=== PATIENT | male | born 1950 | race Hispanic/Latino ===

== ENCOUNTER → 2019-03-16 | Outpatient (CLI) | payer MEDICARE ==
--- NOTE | 2019-03-16 16:40 | RAD ---
EXAM DESCRIPTION: Shoulder,Left 2 or More Views CLINICAL HISTORY: 68 years Male, PAIN IN LEFT SHOULDER COMPARISON: None. Findings: Location: Left shoulder No acute fracture or dislocation. Moderate acromioclavicular osteoarthritis. Soft tissues are unremarkable. Subacromial space is narrowed. Visualized chest is clear. Moderate glenohumeral osteoarthritis. IMPRESSION: Chronic degenerative changes in the left shoulder. No evidence of acute process. Electronically signed by: John Brown MD 03/16/2019 4:38 PM CDT
== END ==
LOC: RAD 08:40
PROVIDERS: ATTEND Orthopaedic Surgery
DX: M19.012 Primary osteoarthritis, left shoulder (principal)

== ENCOUNTER → 2019-04-20 | Outpatient (CLI) | payer MEDICARE ==
--- NOTE | 2019-04-21 08:41 | RAD ---
EXAM DESCRIPTION: Pelvis CLINICAL HISTORY: 68 years Male, PAIN COMPARISON: None. TECHNIQUE: AP radiograph of the pelvis was performed. FINDINGS: The pelvic ring appears grossly intact on this single AP radiograph. No acute fracture or dislocation. Bilateral sacroiliac joints appear normal. Mild degenerative changes identified in the bilateral joints. The visualized lumbo-sacral spine demonstrates mild degenerative changes. IMPRESSION: Single AP radiograph of the pelvis demonstrates grossly intact pelvic ring. Mild bilateral hip osteoarthritis. Electronically signed by: Randee Silverman MD 04/21/2019 8:40 AM CDT
--- NOTE | 2019-04-21 08:43 | RAD ---
EXAM DESCRIPTION: Knee,Left Complete CLINICAL HISTORY: 68 years Male, KNEE PAIN TECHNIQUE: 3 views of the left knee were performed. COMPARISON: None available. FINDINGS: The visualized bones appear well mineralized. No acute fracture or dislocation. Tricompartmental joint space narrowing and tiny suprapatellar joint effusion. The soft tissues appear grossly unremarkable. IMPRESSION: Tricompartmental joint space narrowing and tiny suprapatellar joint effusion. Electronically signed by: Randee Silverman MD 04/21/2019 8:41 AM CDT
== END ==
LOC: LAB.O 15:18
PROVIDERS: ATTEND Nurse Practitioner Family
DX: Z01.810 Encounter for preprocedural cardiovascular examination (principal); Z01.812 Encounter for preprocedural laboratory examination; M16.0 Bilateral primary osteoarthritis of hip; M25.562 Pain in left knee; M25.862 Other specified joint disorders, left knee; M25.462 Effusion, left knee

== ENCOUNTER → 2019-05-01 | Outpatient (CLI) | payer MEDICARE ==
--- NOTE | 2019-05-01 09:48 | MRI ---
MRI left shoulder without contrast INDICATION: Rotator cuff tear shoulder pain chronic TECHNIQUE: Noncontrast MR imaging left shoulder standard protocol FINDINGS: Severe thinning subscapularis affectively full-thickness tear. Long head bicep is very indistinct high-grade partial to complete rupture. Advanced cuff arthropathy with superior migration of the humerus with obliterated subacromial space. Chronic full-thickness retracted tear supraspinatus and infraspinatus. Background moderate glenohumeral osteoarthrosis. Moderate hypertrophic AC joint osteoarthrosis. Prominent joint and bursal fluid and synovitis/debris. Generalized grade 4 muscle atrophy throughout the rotator cuff musculature. IMPRESSION: Chronic cuff arthropathy with full-thickness rotator cuff tears and grade 4 diffuse muscle atrophy Background moderate glenohumeral and AC joint arthrosis Ill-defined or absent long head bicep indicating high-grade partial to full-thickness tear Electronically signed by: Fermin Varghese MD 05/01/2019 9:47 AM [employer]
== END ==
LOC: LAB.O 08:12
PROVIDERS: ATTEND Orthopaedic Surgery
DX: M75.102 Unspecified rotator cuff tear or rupture of left shoulder, not specified as traumatic (principal); S46.212A Strain of muscle, fascia and tendon of other parts of biceps, left arm, initial encounter; M62.512 Muscle wasting and atrophy, not elsewhere classified, left shoulder; M19.012 Primary osteoarthritis, left shoulder

== ENCOUNTER → 2019-06-11 | Outpatient (CLI) | payer MEDICARE ==
--- NOTE | 2019-06-11 13:03 | CT ---
Study: CT of the Left Shoulder. Indication: LOCALIZED PRIMARY OSTEOARTHRITIS OF SHOULDER REGION Technique: Axial CT of the left shoulder was performed without contrast. Coronal and sagittal reformats performed. This exam was performed according to our departmental dose-optimization program, which includes automated exposure control, adjustment of the mA and/or kV according to patient size and/or use of iterative reconstruction technique. Comparison: None. Findings: Severe hypertrophic AC joint osteoarthritis. Type I acromion with remodeling of its undersurface. Superior migration humeral head abutting the acromion. Full-thickness, fullwidth supraspinatus, infraspinatus, and subscapularis tendon tearing suspected with moderate atrophy and grade 3 fatty infiltration rotator cuff musculature. Significant cortical remodeling throughout the humeral head and glenoid indicating overlying grade 4 chondrosis. Mild flattening of the humeral head. Small to moderate osteophytes. Moderate size joint effusion. No acute fracture. Impression: Severe glenohumeral joint osteoarthritis. Severe hypertrophic AC joint osteoarthritis. Chronic massive rotator cuff tendon tearing as above. Electronically signed by: Familia Pierre MD 06/11/2019 1:02 PM [facility]
== END ==
LOC: CT 08:08
PROVIDERS: ATTEND Orthopaedic Surgery
DX: M19.012 Primary osteoarthritis, left shoulder (principal); M75.122 Complete rotator cuff tear or rupture of left shoulder, not specified as traumatic

== ENCOUNTER → 2019-06-22 | Outpatient (CLI) | payer MEDICARE ==
--- NOTE | 2019-06-22 08:25 | RAD ---
EXAM DESCRIPTION: Chest x-ray,2 Views CLINICAL HISTORY: PRE OP EVALUATION COMPARISON: None TECHNIQUE: PA/lateral FINDINGS: There is no acute appearing cardiac or pulmonary abnormality. Heart size is normal with normal pulmonary vascularity. No pleural effusion or pneumothorax. Lungs are clear with no consolidating infiltrate. Sclerotic left humeral head is present. Correlate with previous studies of the left shoulder. Lateral view shows intact sternum and T-spine. IMPRESSION: No acute process is identified in the chest. Electronically signed by: Ten Ford MD 06/22/2019 8:24 AM [facility]
== END ==
LOC: LAB.O 07:44
PROVIDERS: ATTEND Orthopaedic Surgery
DX: Z01.818 Encounter for other preprocedural examination (principal)

== ENCOUNTER 2019-07-21 05:23 | Inpatient (IN) | payer MEDICARE, OTHER ==
[2019-07-21] MEDS ORDERED: SODIUM CHL 0.9% 100ML MINI-BAG 100 ML IVPB ONE (05:36)
[2019-07-21] MEDS ORDERED: ceFAZolin SODIUM 1 GM VIAL ONE ×2 (05:36→06:25)
[2019-07-21] MEDS ORDERED: VANCOMYCIN HCL INJ 1,000 MG VIAL IVPB ONE ×5 (05:36→19:06)
[2019-07-21] MEDS ORDERED: TRANEXAMIC ACID 1,000 MG/10 ML VIAL ONE ×2 (05:36→05:43)
[2019-07-21] MEDS ORDERED: LACTATED RINGERS 0 ML ONE (05:36)
[2019-07-21] MEDS ORDERED: SODIUM CHLORIDE 0.9% 250ML 250 ML ONE ×3 (05:40→19:05)
[2019-07-21] MEDS ORDERED: SODIUM CHLORIDE 0.9% 100ML 100 ML IVPB ONE (05:40)
[2019-07-21] MEDS ORDERED: BUPIVACAINE LIPOSOME 13.3 MG/ML VIAL INJ ONE ×4 (06:25→06:43)
[2019-07-21] MEDS ORDERED: BUPIVACAINE 0.5% 30 ML VIAL INJ ONE ×2 (06:25→06:43)
[2019-07-21] MEDS ORDERED: CLINDAMYCIN IV 900MG 50 ML IVPB ONE (06:25)
[2019-07-21] MEDS ORDERED: DEXMEDETOMIDINE HCL 200 MCG/2 ML INJ IV ONE (06:35)
[2019-07-21] MEDS ORDERED: fentaNYL CITRATE INJ 50 MCG/ML AMP ONE (06:36)
[2019-07-21] MEDS ORDERED: MIDAZOLAM INJ 5 MG/5 ML VIAL ONE (06:36)
[2019-07-21] MEDS ORDERED: KETAMINE HCL 100 MG/ML VIAL ONE (06:36)
[2019-07-21] MEDS ORDERED: ROCURONIUM BROMIDE 10 MG/ML VIAL ONE ×2 (06:36→08:56)
[2019-07-21] MEDS ORDERED: CLINDAMYCIN IV 900 MG/50 ML BAG IVPB ONE (06:43)
[2019-07-21] MEDS ORDERED: ceFAZolin SODIUM 1 GM VIAL IRRIG ONE (06:43)
[2019-07-21] MEDS ORDERED: ACETAMINOPHEN IV 1000MG 100 ML ONE (08:18)
[2019-07-21] MEDS ORDERED: SUGAMMADEX SODIUM 200 MG/2 ML VIAL IV ONE (08:56)
[2019-07-21] MEDS ORDERED: ZOLPIDEM TARTRATE 5 MG TAB PO PRN (09:18)
[2019-07-21] MEDS ORDERED: ACETAMINOPHEN 500 MG TAB PO PRN (09:18)
[2019-07-21] MEDS ORDERED: MORPHINE SULFATE INJ 10 MG/ML VIAL IM PRN (09:18)
[2019-07-21] MEDS ORDERED: PROMETHAZINE HCL INJ 12.5 MG in SODIUM CHLORIDE 0.9% 50ML 50 ML IVPB PRN (09:18)
[2019-07-21] MEDS ORDERED: TRANEXAMIC ACID INJ 1,000 MG in SODIUM CHLORIDE 0.9% 100ML 100 ML IVPB ONE (09:18)
[2019-07-21] MEDS ORDERED: BISACODYL SUPPOSITORY 10 MG PR PRN (09:18)
[2019-07-21] MEDS ORDERED: ACETAMINOPHEN 325 MG TAB PO PRN (09:18)
[2019-07-21] MEDS ORDERED: ALUMINUM & MAGNESIUM HYDROXIDE 30 ML UD PO PRN (09:18)
[2019-07-21] MEDS ORDERED: SODIUM CHLORIDE 0.9% (FLUSH) 10 ML SYG IV PRN (09:18)
[2019-07-21] MEDS ORDERED: PROMETHAZINE HCL INJ 25 MG in SODIUM CHLORIDE 0.9% 50ML 50 ML IVPB PRN (09:18)
[2019-07-21] MEDS ORDERED: MAGNESIUM HYDROXIDE 30 ML UD PO PRN (09:18)
[2019-07-21] MEDS ORDERED: TEMAZEPAM 15 MG CAP PO PRN (09:18)
[2019-07-21] MEDS ORDERED: BENZOCAINE-MENTH LOZ (CEPACOL) 1 EA LOZ MT PRN (09:18)
[2019-07-21] MEDS ORDERED: ONDANSETRON INJ 4 MG/2 ML VIAL IV PRN (09:18)
[2019-07-21] MEDS ORDERED: NALOXONE HCL INJ 0.4 MG/ML VIAL IV PRN (09:18)
[2019-07-21] MEDS ORDERED: HYDROcodone 5MG/APAP 325MG 1 EA TAB PO PRN (09:24)
[2019-07-21] MEDS ORDERED: DEX 5% W/NACL 0.45% 1000ML 1,000 ML IVS PRN (09:24)
[2019-07-21] MEDS ORDERED: MORPHINE PCA 1 MG/ML 100 ML BAG IVPB SCH (09:30)
[2019-07-21] MEDS ORDERED: IV SET AND CAP CHANGE INJ INJ SCH (09:30)
[2019-07-21] MEDS ORDERED: LACTATED RINGERS 1,000 ML ONE (10:02)
[2019-07-21] MEDS: CLINDAMYCIN INJ (VIAL) 300 MG in SODIUM CHLORIDE 0.9% 50ML 50 ML IVPB SCH ×2 (11:18→17:33)
--- NOTE | 2019-07-21 11:26 | RAD ---
EXAM DESCRIPTION: Shoulder,Left 1 View CLINICAL HISTORY: S/P Total Shoulder Arthroplasty COMPARISON: None. TECHNIQUE: AP left FINDINGS: The exam demonstrates placement of a reverse left shoulder arthroplasty. Positioning is near-anatomic. Postoperative air is observed in the joint. IMPRESSION: New left shoulder reverse arthroplasty Electronically signed by: Diogo Henderson MD 07/21/2019 11:24 AM [facility]
[2019-07-21] MEDS ORDERED: GLUCAGON INJ 1 MG VIAL SUBCU PRN (11:29)
[2019-07-21] MEDS ORDERED: HYDROcodone 10MG/APAP 325MG 1 EA TAB PO PRN (11:29)
[2019-07-21] MEDS ORDERED: DEXTROSE 10% 500ML IVPB PRN (11:29)
[2019-07-21] MEDS ORDERED: DEXAMETHASONE INJ 10 MG/ML VIAL IV ONE (12:00)
[2019-07-21] MEDS ORDERED: ePHEDrine SULF 50 MG/ML IV ONE (12:00)
[2019-07-21] MEDS ORDERED: PROPOFOL 200 MG/20 ML VIAL IV ONE (12:00)
[2019-07-21] MEDS ORDERED: raNITIdine HCL INJ 25 MG/ML VIAL IV ONE (12:00)
[2019-07-21] MEDS ORDERED: KETOROLAC TROMETHAMINE INJ 30 MG/ML VIAL IV ONE (12:00)
[2019-07-21] MEDS ORDERED: LIDOCAINE 1% 10 ML VIAL INJ ONE (12:00)
[2019-07-21] MEDS: INSULIN LISPRO 100 UNITS/ML PEN SUBCU SCH ×3 (12:06→20:46)
[2019-07-21] MEDS: HYDROcodone 10MG/APAP 325MG 1 EA TAB PO PRN ×3 (12:09→21:33)
[2019-07-21] MEDS: CYCLOBENZAPRINE HCL 10 MG TAB PO PRN ×2 (12:09→20:37)
[2019-07-21] MEDS: MORPHINE SULFATE INJ 10 MG/ML VIAL IV PRN ×2 (14:10→15:06)
[2019-07-21] MEDS ORDERED: ceFAZolin SODIUM 1 GM in SODIUM CHL 0.9% 50ML MIN-BAG+ 50 ML IVPB SCH (16:00)
[2019-07-21] MEDS ORDERED: CLINDAMYCIN PHOSPHATE 150 MG/ML VIAL ONE ×3 (17:27→19:05)
[2019-07-21] MEDS ORDERED: SODIUM CHLORIDE 0.9% 50ML 50 ML ONE ×2 (17:28→19:06)
[2019-07-21] MEDS: traMADol HCL 50 MG TAB PO PRN ×2 (17:33→22:12)
[2019-07-21] MEDS: VANCOMYCIN HCL INJ 1,000 MG in SODIUM CHLORIDE 0.9% 250ML 250 ML IVPB SCH (18:12)
[2019-07-21] MEDS ORDERED: ENOXAPARIN SODIUM 30 MG/0.3 ML SYG SUBCU ONE (19:05)
[2019-07-21] MEDS: DOCUSATE CALCIUM 240 MG CAP PO SCH (20:37)
[2019-07-21] MEDS ORDERED: HYDROcodone 10MG/APAP 325MG 1 EA TAB PO ONE (20:44)
[2019-07-21] MEDS: ENOXAPARIN SODIUM 30 MG/0.3 ML SYG SUBCU SCH (22:57)
[2019-07-22] MEDS: CLINDAMYCIN INJ (VIAL) 300 MG in SODIUM CHLORIDE 0.9% 50ML 50 ML IVPB SCH ×3 (01:12→18:00)
[2019-07-22] MEDS: MORPHINE SULFATE INJ 10 MG/ML VIAL IV PRN ×4 (01:21→22:39)
[2019-07-22] MEDS: HYDROcodone 10MG/APAP 325MG 1 EA TAB PO PRN ×6 (02:02→23:42)
[2019-07-22] MEDS: VANCOMYCIN HCL INJ 1,000 MG in SODIUM CHLORIDE 0.9% 250ML 250 ML IVPB SCH (06:00)
[2019-07-22] MEDS: CYCLOBENZAPRINE HCL 10 MG TAB PO PRN ×2 (06:03→15:38)
[2019-07-22] MEDS: INSULIN LISPRO 100 UNITS/ML PEN SUBCU SCH ×4 (07:15→21:19)
[2019-07-22] MEDS ORDERED: CLINDAMYCIN PHOSPHATE 150 MG/ML VIAL ONE ×2 (09:21→18:30)
[2019-07-22] MEDS ORDERED: SODIUM CHLORIDE 0.9% 50ML 50 ML ONE ×2 (09:22→18:30)
[2019-07-22] MEDS: MAGNESIUM OXIDE 400 MG TAB PO SCH (09:32)
[2019-07-22] MEDS: ENOXAPARIN SODIUM 30 MG/0.3 ML SYG SUBCU SCH ×2 (11:42→22:39)
--- NOTE | 2019-07-22 13:18 | CONS ---
SUPERVISING PHYSICIAN: Esvin Haynes MD DATE OF CONSULTATION: 07/21/19 HISTORY OF PRESENT ILLNESS: This is a 68-year-old male patient who has had a longstanding history of left shoulder pain. He has a history of osteoarthritis. After trying conservative measures and failing to gain any relief, he asked that Dr. Ortega, orthopedic surgeon, perform operative intervention for left reverse total shoulder replacement. He was admitted on the morning of his surgery. There were no intraoperative complications. In the Recovery Room, he did have somewhat elevated glucose as well as his pain was somewhat difficult to get under control, but he has had multiple orthopedic type surgeries in the past as well as some chronic pain issues. His pain was gotten under control and he was admitted to the Medical/Surgical Floor in stable condition. PAST MEDICAL HISTORY: 1. Back pain. 2. Bilateral foot pain. 3. Osteoarthritis. 4. Chronic pain syndrome due to multiple surgical interventions. PAST SURGICAL HISTORY: 1. Four surgeries on toes on his right foot. 2. Three surgeries on toe on his left foot. 3. Back surgery. 4. Three left hand surgeries. OUTPATIENT MEDICATIONS: 1. Hydrocodone. ALLERGIES: NO KNOWN DRUG ALLERGIES. SOCIAL HISTORY: He lives in [place]. He quit smoking 38 years ago and has no history of ETOH or illicit drug use. REVIEW OF SYSTEMS: Negative except as per history of present illness. PHYSICAL EXAMINATION: VITAL SIGNS: Temperature 97.9. Heart rate 80. Blood pressure 147/80. Respiratory rate 14. O2 saturation 91% on room air. GENERAL: This is a 68-year-old male who is sitting up in his hospital bed. He is in no acute distress. HEENT: Normocephalic, atraumatic. Pupils are equal and reactive. Oropharynx is clear. NECK: Supple without mass. RESPIRATORY: Essentially clear to auscultation bilaterally. CHEST: There is equal rise and fall of the chest with inspiration and expiration. CARDIOVASCULAR: Regular rate and rhythm. GASTROINTESTINAL: Abdomen is soft, nondistended, nontender. Bowel sounds are positive. EXTREMITIES: No cyanosis, clubbing or edema. He does have a sling to his left arm. He also has a dressing to the left shoulder that is dry and intact. Bilateral radial pulses are palpable at +2. Bilateral pedal pulses are palpable at +2. SKIN: Warm and dry. NEUROLOGIC: Awake, alert and oriented times three. Cranial nerves II-XII are grossly intact as tested. LABORATORY: Preoperative UDS was positive for urine opiates, otherwise negative. Blood sugar in the OR was 117, 125 and 133. X-rays are as per the EMR. IMPRESSION: 1. Left reverse total shoulder replacement, postoperative day #0. 2. Osteoarthritis. 3. Chronic pain syndrome. PLAN: We will continue present supportive care. Orthopedic issues will be per Dr. Juan Ortega, orthopedic surgeon. He will begin his physical therapy for strengthening and conditioning tomorrow per [facility] physical therapy team. I have continued his hydrocodone at his home dosage. I have ordered a hemoglobin A1c for in the morning. We will continue to monitor the patient closely and follow as needed. [facility][id number] [facility]
[2019-07-22] MEDS: traMADol HCL 50 MG TAB PO PRN (15:43)
[2019-07-22] MEDS ORDERED: HYDROcodone 10MG/APAP 325MG 1 EA TAB PO ONE (17:50)
--- NOTE | 2019-07-22 18:30 | PN ---
DATE: 07/22/19 SUPERVISING PHYSICIAN: Esvin Haynes MD SUBJECTIVE: The patient is sitting up in bed eating. Brother is at his bedside. He has no complaints of shortness of breath, nausea or vomiting or chest pain. He does complain of pain rating it almost every time at about 7. We discussed that he would not be pain-free and we would attempt to control his pain as much as possible. He has received an extra dose of his hydrocodone overnight. OBJECTIVE: VITAL SIGNS: Temperature 97.8, heart rate 64, blood pressure 142/74, respiratory rate 18, oxygen saturation 91% on room air. RESPIRATORY: Essentially clear to auscultation bilaterally. CARDIAC: Regular rate and rhythm. ABDOMEN: Soft, nondistended, non-tender. Bowel sounds are positive. EXTREMITIES: He has sling in place to his left arm. He has a dressing that is dry and intact. His bilateral radial pulses are palpable at 0.2. NEUROLOGICAL: He is awake, alert, and oriented x3. LABORATORY: Hemoglobin 11.4, hematocrit 34.1. Hemoglobin A1C is 5.4. All other labs and films have been reviewed via the EMR. ASSESSMENT: 1. Left reverse total shoulder replacement, postoperative day #1. 2. Osteoarthritis. 3. Chronic pain syndrome. PLAN: We will continue present supportive care. Instructions will be per Dr. Juan Ortega, orthopedic surgeon. He will continue with physical therapy for strengthening and conditioning. He is also to have [facility] at discharge for his physical therapy. I have instructed the nurses to call me when the patient's pain is poorly controlled and we would discuss options at that time. Otherwise, will plan for discharge tomorrow. Will continue to monitor him closely and follow as needed. #[id number] [facility]D
[2019-07-22] MEDS: SODIUM CHLORIDE 0.9% (FLUSH) 10 ML SYG IV SCH (21:19)
[2019-07-22] MEDS: DOCUSATE CALCIUM 240 MG CAP PO SCH (21:20)
[2019-07-23] MEDS ORDERED: SODIUM CHLORIDE 0.9% 50ML 50 ML ONE ×2 (01:12→07:15)
[2019-07-23] MEDS ORDERED: CLINDAMYCIN PHOSPHATE 150 MG/ML VIAL ONE ×2 (01:12→07:14)
[2019-07-23] MEDS: CLINDAMYCIN INJ (VIAL) 300 MG in SODIUM CHLORIDE 0.9% 50ML 50 ML IVPB SCH ×2 (01:20→09:23)
[2019-07-23] MEDS: HYDROcodone 10MG/APAP 325MG 1 EA TAB PO PRN ×3 (03:43→12:58)
[2019-07-23] MEDS: CYCLOBENZAPRINE HCL 10 MG TAB PO PRN (05:45)
[2019-07-23] MEDS: traMADol HCL 50 MG TAB PO PRN (05:45)
[2019-07-23] MEDS: INSULIN LISPRO 100 UNITS/ML PEN SUBCU SCH ×2 (07:13→12:02)
--- NOTE | 2019-07-23 09:02 | OP ---
DATE OF PROCEDURE: 07/21/19 PREOPERATIVE DIAGNOSIS: 1. Osteoarthritis of the left shoulder. 2. Rotator cuff tear. POSTOPERATIVE DIAGNOSIS: 1. Osteoarthritis of the left shoulder. 2. Rotator cuff tear. PROCEDURE: 1. Reverse shoulder arthroplasty. SURGEON: Juan Ortega MD. ELECTRIC ORGAN INSPECTOR AND REPAIRER: Chaparro Cuellar CST, SA-C. ANESTHESIA: General anesthesia. COMPLICATIONS: None. FINDINGS: 1. Severe osteoarthritis. 2. Massive rotator cuff tear. INDICATION: Mr. Leal has a long history of shoulder pain. He has had dysfunction that has been limiting his daily activity. Because of his issues, he has requested operative intervention. After discussing the risks, benefits and alternatives to operative therapy, the patient gave informed consent for shoulder arthroplasty. PROCEDURE: The patient was brought to the Operating Room and placed in the supine position. General anesthesia was induced. The patient was transitioned into the beach chair position. Following that, the arm was sterilely prepped and draped. A standard deltopectoral approach was used and the proximal humerus was identified. The proximal humeral cut was made and it was sequentially reamed to a size 15. The trial broach was left in place and the glenoid was exposed. Following exposure of the glenoid, a central guidewire was placed. After that, it was sequentially reamed with a 24 mm reamer followed by a 28 mm reamer. A baseplate was seated after I achieved a bleeding bony bed on the glenoid. Four peripheral screws were placed. Following that, the glenosphere was placed. A trial cup was then placed and the patient's shoulder was reduced. Following reduction, it was taken through a range of motion. It was found to be stable and had no impingement or impending dislocation. The shoulder was then dislocated and the trial stem and cup were removed. Following that, the wound was very thoroughly irrigated. The final construct was placed and the shoulder was again reduced. It was again trialed and found to be without impingement. The wound was again very thoroughly irrigated and the deltopectoral interval was reapproximated. The skin was closed with a combination of running and interrupted subcuticular stitches. Sterile dressings were placed. The patient was placed in a sling, awoken from anesthesia and taken to Recovery. POSTOPERATIVE PLAN: The patient will be admitted and will begin gentle passive range of motion on the shoulder on postoperative day 1. COMPONENTS: Shae ReUnion Shoulder, size 15 stem, size 32 glenosphere and size 28 baseplate. #[id number] [facility]
--- NOTE | 2019-07-23 09:15 | PN ---
DATE: 07/22/19 SUBJECTIVE: Luca is doing well. He has well controlled pain. OBJECTIVE: Afebrile. Vital signs stable. Dressing is clean, dry and intact. ASSESSMENT: Status post total shoulder arthroplasty. PLAN: The plan at this point is for beginning physical therapy today. #[id number] [facility]TDD
--- NOTE | 2019-07-23 09:17 | PN ---
DATE: 07/23/19 SUBJECTIVE: Luca is doing well. He is up walking. OBJECTIVE: Afebrile. Vital signs stable. The wound is clean. There are no signs or symptoms of infection. ASSESSMENT: Status post reverse shoulder arthroplasty. PLAN: The plan at this point is for him to be discharged with outpatient physical therapy. We will see him back again in about 2 weeks. #[id number] [facility]TDD
[2019-07-23] MEDS: MAGNESIUM OXIDE 400 MG TAB PO SCH (09:23)
[2019-07-23] MEDS: SODIUM CHLORIDE 0.9% (FLUSH) 10 ML SYG IV SCH (09:24)
[2019-07-23 11:21] VITALS: BP 152/80; TEMP 98; O2SAT 95
[2019-07-23] MEDS: ENOXAPARIN SODIUM 30 MG/0.3 ML SYG SUBCU SCH (11:32)
--- NOTE | 2019-07-28 08:45 | DS ---
SUPERVISING PHYSICIAN: Esvin Haynes MD DISCHARGE DIAGNOSIS: 1. Left reverse total shoulder replacement, postoperative day #2. 2. Osteoarthritis. 3. Chronic pain syndrome. HISTORY OF PRESENT ILLNESS: This is a 68-year-old male patient who was admitted on the day of his operative procedure. He had a left reverse total shoulder replacement. He was admitted to the hospital in stable condition. He has had a longstanding history of left shoulder pain as well as osteoarthritis. He tried conservative measures that failed to give any relief, and he asked that Dr. Ortega, orthopedic surgeon, perform operative intervention. He was admitted to have surgery and there were no intraoperative complications. He was admitted to the Medical/Surgical Floor in stable condition. HOSPITAL COURSE: The patient was admitted to the Medical/Surgical Floor in stable condition. His only issue after admission to the Floor was pain. He always rated his pain as a 7 in spite of being asleep or resting quietly. He did admit that he had taken pain medications in the last few years because he has had multiple orthopedic surgeries. He received his physical therapy for strengthening and conditioning without any issues. Today, he will be discharged home in stable condition. LABORATORY: Hemoglobin 11.4, hematocrit 34.1. Blood sugars ran between 98 and 130. He had a positive urine drug screen for opiates, otherwise negative. RADIOLOGY: Radiology reports are per the EMR. DISCHARGE PLAN: The patient will be discharged home in stable condition. He is to have [facility] for physical therapy. He is to resume his previous diet and his activity will be per physical therapy. He is to followup with Dr. Ortega on 07/27/19 at 10 AM. In addition to his routine medications, he is to have cyclobenzaprine as well as Raymond. He is to return to the hospital or call Dr. Ortega for any problems or complications. DISCHARGE MEDICATIONS: 1. Raymond. 2. Multivitamins. 3. Cyclobenzaprine. #[id number] [facility]
== END 2019-07-23 13:10 | disposition home health service (06) | DRG 483 ==
LOC: AMB 05:23 → MS 10:57
PROVIDERS: ADMIT Orthopaedic Surgery; ATTEND Nurse Practitioner Acute Care
PROC: 3E0T3BZ Introduction of Anesthetic Agent into Peripheral Nerves and Plexi, Percutaneous Approach (ICD-10-PCS; 2019-07-21)
PROC: 0RRK00Z Replacement of Left Shoulder Joint with Reverse Ball and Socket Synthetic Substitute, Open Approach (ICD-10-PCS; principal; 2019-07-21 07:00)
DX: M19.012 Primary osteoarthritis, left shoulder (principal); M75.102 Unspecified rotator cuff tear or rupture of left shoulder, not specified as traumatic; G89.4 Chronic pain syndrome; Z98.890 Other specified postprocedural states; Z79.891 Long term (current) use of opiate analgesic; Z87.891 Personal history of nicotine dependence

== ENCOUNTER 2019-07-25 14:46 | Observation (INO) | payer MEDICARE, MEDICAID ==
[2019-07-25] MEDS ORDERED: HYDROmorphone HCL INJ 2 MG/ML VIAL IV ONE (15:36)
--- NOTE | 2019-07-25 15:42 | ED.PDOC ---
History of Present Illness - General Chief Complaint: Post Op Problems Stated Complaint: Shoulder discomfort Time Seen by Provider: 07/25/19 15:36 Source: patient - History of Present Illness Initial Comments: 68 yo male POD #3 s/p L total shoulder replacement who is transferred here from [place] ED via ground EMS for cc of left shoulder pain. Reports worsening pain, redness, swelling, warmth to the left shoulder since he had L total shoulder replacement (indicated for osteoarthritis). Pain became unbearable and uncontrollable with home pain meds so he presented to ED this morning. Also reports new onset fever this morning with Tmax 100.3 F. At work-up showed WBC 10,[address] L shoulder done which revealed a couple small areas of fluid collections which are thought to be normal postop findings and a small hematoma but infection could not be excluded. Pt had LUE doppler venous US which revealed no evidence of DVT. He was given Vanc & Zosyn and transferred here. In all he has had morphine 8 mg IV and Fentanyl 250 mcg IV prior to arrival here. Reports pain well-controlled but starting to return again. Currently reports constant, throbbing 7/10 pain throughout the left shoulder, worse anteriorly and posteriorly, worsens with moderate ROM of shoulder and palpation. Reports redness/warmth/swelling which extends to the upper arm and forearm of the LUE, much improved actually since this morning. Denies any weakness/numbness. Also reports some new bruising to central chest wall since this morning but denies any acute injury there. No other acute sx's reported. Allergies/Adverse Reactions: Allergies NO KNOWN ALLERGY Allergy (Verified 07/22/19 23:52) Home Medications: Ambulatory Orders HYDROcodone 10MG/APAP 325MG [[place] 10/325] 1 ea PO .Q4H PRN 07/13/19 Misc Natural Products [Prostate Health] 1 cap PO .QOD 07/13/19 Multiple Vitamin [Multi Vitamin] 1 tab PO DAILY 07/13/19 Cyclobenzaprine HCl [Flexeril] 10 mg PO Q8H PRN #30 tab 07/23/19 HYDROcodone 10MG/APAP 325MG [[place] 10/325] 1 ea PO Q4H PRN tab 07/23/19 Review of Systems - Review of Systems Review of Systems: 07/25/19 15:42 as per HPI All other Systems: Reviewed and Negative Past Medical History (General) - Patient Medical History Hx Seizures: No Hx Stroke: No Hx Dementia: No Hx Asthma: No Hx of COPD: No Hx Cardiac Disorders: No Hx Congestive Heart Failure: No Hx Pacemaker: No Hx Hypertension: No Hx Thyroid Disease: No Hx Diabetes: No Hx Gastroesophageal Reflux: No Hx Renal Disease: No Hx Cancer: No Hx of HIV: No Hx Hepatitis C: Yes Hx MRSA: No Surgical History: tonsillectomy - Vaccination History Hx Tetanus, Diphtheria Vaccination: Yes Hx Influenza Vaccination: Yes Hx Pneumococcal Vaccination: Yes - Social History Hx Tobacco Use: No Hx Chewing Tobacco Use: No Hx Alcohol Use: No Hx Substance Use: No Hx Substance Use Treatment: No Hx Depression: No Feels Threatened In Home Enviroment: No Feels Threatened In a Relationship: No Hx Physical Abuse: No Hx Emotional Abuse: No Hx Suspected Abuse: No - Female History Patient is a Female of Child Bearing Age (10 -59 yrs old): No - Triage Comment ED Triage Comment: Agree with Rosa Lawrence EMT-P triage Family Medical History - Family History Mother Family History: No Known Physical Exam - Physical Exam General Appearance: Alert, No apparent distress Eye Exam: bilateral normal Ears, Nose, Throat: hearing grossly normal, normal ENT inspection, normal pharynx Neck: non-tender, full range of motion, supple, normal inspection Respiratory: lungs clear, normal breath sounds, no respiratory distress, other - moderate bruising approx 5x5 cm to center of chest, moderately ttp Cardiovascular/Chest: normal peripheral pulses, regular rate, rhythm, no gallop, no murmur Peripheral Pulses: radial,right: 2+, radial,left: 2+ Gastrointestinal/Abdominal: non tender, soft, no organomegaly Back Exam: normal inspection, no CVA tenderness, no vertebral tenderness Extremity: other - Left upper arm with marked pitting edema, redness, warmth. The incision site is an approx 14 cm linear wound which appears clean/dry/intact. There is moderate ttp throughout the L shoulder especially anteriorly and posteriorly. No ttp or swelling of the elbow joint, elbow with full ROM. Strength and sensation intact throughout Neurologic: board attendant II-XII nml as tested, no motor/sensory deficits, alert, normal mood/affect, oriented x 3 Skin Exam: warm/dry, other - LUE redness as above Progress - Progress Progress: 07/25/19 15:45 Post-op pain LUE -suspect usual postoperative changes/inflammation from major joint replacement surgery. Consider also sepsis vs cellulitis vs joint space infection vs other but seems less likely to me. DVT has already been excluded from prior facility. -will consult with Dr. Ortega and likely plan for admit for further care to hospitalist service 07/25/19 16:25 -Dr. Ortega has spoken with the hospitalist David Moore and discussed plan of care for admission for postoperative pain control -Discussed with David Moore who accepts to his service. Tony Sweet MD Billing #[id number] Departure - Departure Clinical Impression: Acute postoperative pain Time of Disposition: 16:25 Disposition: Admit Patient Condition: Fair Departure Forms: ED Discharge - Pt. Copy, Patient Portal Self Enrollment Referrals: LUIS FAY IV, HOGSHEAD WEIGHER [Primary Care Provider] - 1-2 Weeks Home Medications: Ambulatory Orders HYDROcodone 10MG/APAP 325MG [[place] 10/325] 1 ea PO .Q4H PRN 07/13/19 Misc Natural Products [Prostate Health] 1 cap PO .QOD 07/13/19 Multiple Vitamin [Multi Vitamin] 1 tab PO DAILY 07/13/19 Cyclobenzaprine HCl [Flexeril] 10 mg PO Q8H PRN #30 tab 07/23/19 HYDROcodone 10MG/APAP 325MG [[place] 10/325] 1 ea PO Q4H PRN tab 07/23/19 Decision To Admit - Decistion To Admit Decision to Admit Reason: Admit from ER Decision to Admit Date: 07/25/19 Decision to Admit Time: 16:25
--- NOTE | 2019-07-25 16:44 | HP ---
SUPERVISING PHYSICIAN: Esvin Haynes MD CHIEF COMPLAINT: Left shoulder pain status post total arthroplasty on 07/21/19. HISTORY OF PRESENT ILLNESS: Mr. Leal is a 68-year-old male patient who is postoperative day #3 status post total left shoulder replacement. He was transferred from [facility] ED by ground EMS with a complaint of severe left shoulder pain. He endorses the pain has been worsening with some mild redness and swelling since discharge. He has not been getting any relief with his oral medications. In the Emergency Department he was noted to have a temperature of 100.3. Initial workup showed he had a white count of 10,000 without a left shift. A CT of the left shoulder was completed and showed just a few areas of small fluid collections which were thought to be normal postoperative findings as well as a small hematoma but infection was not able to be ruled out on CT. The patient also had a left upper extremity Doppler venous study which revealed no evidence of DVT. In the Emergency Department at [facility] he was given antibiotics to include vancomycin and Zosyn and transferred to the Emergency Department here for evaluation at Dr. Ortega's request. He was requiring a fairly large amount of pain medication that included morphine which he got up to 8 mg as well as Fentanyl 250 mcg and on arrival was still reporting his pain was controlled but throbbing and 7/10 throughout the left shoulder. The pain he endorses was worse anteriorly and posteriorly and worsened with range of motion of his shoulder on palpation. There was some reported redness and warmth and swelling that extended to the upper arm and forearm of the left upper extremity but this was not seen on admission to the Emergency Department today. He denied any weakness or other neurovascular compromise to the left extremity. Dr. Ortega was consulted by the physician at [facility] and after consultation it was requested the patient be transferred to the Emergency Room at [facility] for further evaluation. Dr. Ortega then called myself and requested the patient after evaluation, be admitted for more aggressive pain management as the pain was being poorly controlled with oral medications as an outpatient. On presentation to the Emergency Room at [facility], vital signs showed he was afebrile with a temperature of 99.3. He was actually hypertensive with a blood pressure of 330218, oxygen saturation 100% on room air. No additional laboratory studies were done prior to admission to the Emergency Room here. He had already been started on antibiotics. The patient was found to be stable with no obvious overt signs of infection in his shoulder but was certainly having poor control of pain management with oral pain management and is now going to be admitted for more aggressive pain management and close evaluation and consultation with Dr. Ortega. The patient was admitted to the hospital in stable condition. PAST MEDICAL HISTORY: 1. Chronic back pain. 2. Bilateral foot pain. 3. Osteoarthritis. 4. Chronic pain syndrome due to multiple surgical interventions. PAST SURGICAL HISTORY: 1. Left total shoulder surgery as noted, postoperative day #4 on 07/23/19. 2. Surgery to right foot and toes x4. . 2. Surgery to left foot and toe x3. . 3. Multiple back surgeries. 4. Three left hand surgeries. OUTPATIENT MEDICATIONS: 1. Hydrocodone. 2. Flexeril. ALLERGIES: NO KNOWN DRUG ALLERGIES. SOCIAL HISTORY: Patient lives in [place]. He has a history of smoking but quit 38 years previously, has no history of alcohol or illicit drug use. REVIEW OF SYSTEMS: CONSTITUTIONAL: Noted subjective fever as an outpatient of 102. Denied chills, rigors, diaphoresis. HEENT: Negative for headaches, sore throat, ear ache, nasal congestion, vision changes. CHEST: Denies coughing, wheezing shortness of breath, hemoptysis. CARDIOVASCULAR: Denies chest pain, palpitations, syncopal episodes. GASTROINTESTINAL: Denies nausea, vomiting, diarrhea, constipation or abdominal pains. GENITOURINARY: Denies polyuria, dysuria, hematuria. MUSCULOSKELETAL: As noted in history of present illness, status post postoperative day #4 for total left arthroplasty of left shoulder with uncontrolled pain as noted in history of present illness. . EXTREMITIES: Without any significant findings. NEUROLOGICAL: Negative for headaches, ataxia, seizures, paresthesias or other neurological deficits. HEMATOLOGIC: Denies easy bruising or unexplained bleeding.or transfusion reaction. PHYSICAL EXAMINATION: VITAL SIGNS: Temperature on admission 99.3, pulse 89, blood pressure 190/102, respirations 16, oxygen saturation 90% on room air. Admission weight 74.3 kg. GENERAL: The patient was alert and resting comfortably, appeared to be in no acute distress. HEENT: Tympanic membranes clear bilaterally. Oropharynx pink, moist without lesions. NECK: Supple, non-tender with full range of motion. CHEST: Lung sounds clear to auscultation bilaterally without rhonchi, rales, or wheezes with small area of bruising noted approximately 5 x 5 cm in the center of the chest which is non-tender to palpation. CARDIOVASCULAR: Regular rate and rhythm without appreciable murmurs, rubs, or gallops. GASTROINTESTINAL: Abdomen is soft, nontender. Bowel sounds are positive. BACK: Without any significant findings. No CVA tenderness, no vertebral tenderness. EXTREMITIES: Left upper extremity had some edema with some mild erythema, warm to the touch. No obvious signs of infection. Incision site measured [id number] cm and appeared to be clean and dry with no drainage and was intact, healing well without any complications. The shoulder was tender to palpation throughout, more so anteriorly and posteriorly. There is noted tenderness to palpation along the elbow with full range of motion to the elbow. Strength and sensation were noted to be intact throughout. He does have some pain on passive range of motion/ NEUROLOGIC: Cranial nerves II-XII are grossly intact, no notable motor or sensory deficits. He was alert and oriented x 3. SKIN: Warm, pink and dry with exception of the left upper extremity which was mildly erythemic as noted. LABORATORY: No additional laboratory was completed on admission. Initial white count 10,000 in the Emergency Department at [facility]. Awaiting those lab results for full review. RADIOLOGY: CT performed at [facility] as noted a couple of small areas of fluid collection which were thought to be normal postoperative findings and a small hematoma. He also had left upper extremity Doppler venous study which was without any findings for DVT. Awaiting those full reports for review. ASSESSMENT: 1. Postoperative day #3 status post left total shoulder replacement with uncontrollable postoperative pain, on oral medications. 2. Hypertension poorly controlled. 3. Chronic back pain. 4. Chronic bilateral foot pain. 5. Chronic osteoarthritis. 6. Chronic pain syndrome due to multiple surgical intervention likely contributing to poor control of #1. PLAN: After discussing the case with Dr. Ortega, we are going to put the patient in the hospital for better pain management and close evaluation. Will start him on the Dilaudid pain pump at Dr. Ortega's request as well as his postoperative care and comfort measures. Dr. Ortega also requests that we go ahead and start some empiric coverage with antibiotics to include clindamycin and vancomycin, although at this point there is no obvious infection but given that he is recent postoperative from a total arthroplasty and the patient had already been discharged home, will begin antibiotic coverage and closely monitor. Will plan to follow his labs as needed. I have ordered a physical therapy consultation as well as consultation with Dr. Ortega. I would anticipate his length of stay to be 2 to 3 days. At this point, we will further rule out any remote possibility of infection and again at this point, this appears to not be the issue at hand other than just poor control with the patient having an issue with chronic pain syndrome. Again, until we can transition him back to oral pain management, will continue with inpatient physical therapy, close evaluation. Until then, we will continue to monitor and treat as needed.. #[id number] [facility]
[2019-07-25] MEDS ORDERED: HYDROmorphone PCA 0.2 MG/ML 1 BAG BAG IVPB ONE (16:51)
[2019-07-25] MEDS ORDERED: MAGNESIUM HYDROXIDE 30 ML UD PO PRN (17:10)
[2019-07-25] MEDS ORDERED: CYCLOBENZAPRINE HCL 10 MG TAB PO PRN (17:10)
[2019-07-25] MEDS ORDERED: ACETAMINOPHEN 325 MG TAB PO PRN (17:10)
[2019-07-25] MEDS ORDERED: BENZOCAINE-MENTH LOZ (CEPACOL) 1 EA LOZ MT PRN (17:10)
[2019-07-25] MEDS ORDERED: BISACODYL SUPPOSITORY 10 MG PR PRN (17:10)
[2019-07-25] MEDS ORDERED: ALUMINUM & MAGNESIUM HYDROXIDE 30 ML UD PO PRN (17:10)
[2019-07-25] MEDS ORDERED: NALOXONE HCL INJ 0.4 MG/ML VIAL IV PRN (17:11)
[2019-07-25] MEDS ORDERED: SODIUM CHLORIDE 0.9% (FLUSH) 10 ML SYG IV PRN (17:13)
[2019-07-25] MEDS ORDERED: ONDANSETRON INJ 4 MG/2 ML VIAL IV PRN (17:13)
[2019-07-25] MEDS ORDERED: SODIUM CHLORIDE 0.9% 1000ML 1,000 ML ONE (17:15)
[2019-07-25] MEDS ORDERED: ACETAMINOPHEN IV 1000MG 1,000 MG in PREMIX BOTTLE 1 BOTTLE IVPB ONE (17:18)
[2019-07-25] MEDS ORDERED: ACETAMINOPHEN IV 1000MG 100 ML ONE (17:26)
[2019-07-25] MEDS ORDERED: SODIUM CHL 0.9% 50ML MIN-BAG+ 0 ML IVPB ONE (17:26)
[2019-07-25] MEDS ORDERED: CLINDAMYCIN PHOSPHATE 150 MG/ML VIAL ONE (17:27)
[2019-07-25] MEDS ORDERED: SODIUM CHLORIDE 0.9% 50ML 50 ML ONE (17:27)
[2019-07-25] MEDS ORDERED: VANCOMYCIN PER PHARMACY IVPB SCH (17:30)
[2019-07-25] MEDS ORDERED: HYDROmorphone PCA 0.2 MG/ML 1 BAG BAG IVPB SCH (17:30)
[2019-07-25] MEDS ORDERED: IV SET AND CAP CHANGE INJ INJ SCH (17:30)
[2019-07-25] MEDS: CLINDAMYCIN INJ (VIAL) 300 MG in SODIUM CHLORIDE 0.9% 50ML 50 ML IVPB SCH (17:34)
[2019-07-25] MEDS: BIFIDOBACTERIUM INFANTIS 4 MG CAP PO SCH (17:36)
[2019-07-25] MEDS ORDERED: SODIUM CHLORIDE 0.9% 1000ML 1,000 ML IVS PRN (18:24)
[2019-07-25] MEDS ORDERED: HYDROcodone 5MG/APAP 325MG 1 EA TAB PO ONE (21:50)
[2019-07-25] MEDS ORDERED: TEMAZEPAM 15 MG CAP PO ONE (21:51)
[2019-07-25] MEDS ORDERED: SODIUM CHLORIDE 0.9% 250ML 250 ML ONE (22:18)
[2019-07-25] MEDS ORDERED: VANCOMYCIN HCL INJ 1,000 MG VIAL IVPB ONE (22:19)
[2019-07-25] MEDS: VANCOMYCIN HCL INJ 1,000 MG in SODIUM CHLORIDE 0.9% 250ML 250 ML IVPB SCH (22:24)
[2019-07-26] MEDS ORDERED: CLINDAMYCIN PHOSPHATE 150 MG/ML VIAL ONE ×4 (01:03→19:16)
[2019-07-26] MEDS ORDERED: SODIUM CHLORIDE 0.9% 50ML 50 ML ONE ×4 (01:04→19:17)
[2019-07-26] MEDS: CLINDAMYCIN INJ (VIAL) 300 MG in SODIUM CHLORIDE 0.9% 50ML 50 ML IVPB SCH ×3 (01:09→16:53)
[2019-07-26] MEDS: HYDROcodone 5MG/APAP 325MG 1 EA TAB PO PRN ×5 (02:13→21:47)
[2019-07-26] MEDS ORDERED: CYCLOBENZAPRINE HCL 5 MG TAB PO PRN (08:00)
[2019-07-26] MEDS: CELECOXIB 100 MG CAP PO SCH (08:34)
[2019-07-26] MEDS: BIFIDOBACTERIUM INFANTIS 4 MG CAP PO SCH (08:34)
[2019-07-26] MEDS ORDERED: SODIUM CHLORIDE 0.9% 250ML 250 ML ONE ×2 (09:59→19:16)
[2019-07-26] MEDS ORDERED: VANCOMYCIN HCL INJ 1,000 MG VIAL IVPB ONE ×2 (09:59→19:17)
[2019-07-26] MEDS: VANCOMYCIN HCL INJ 1,000 MG in SODIUM CHLORIDE 0.9% 250ML 250 ML IVPB SCH ×2 (10:15→21:25)
--- NOTE | 2019-07-26 14:00 | RAD ---
EXAM DESCRIPTION: XR Foot, Right 3 Views CLINICAL HISTORY: 68 years Male, foot pain COMPARISON: None. FINDINGS: There is no evidence of acute fracture or dislocation or destructive bony lesion. Joint spaces appear maintained as visualized except for fusion of the first metatarsal and the proximal phalanx of the great toe and fusion of the middle and distal phalanges of the fifth toe. There is a relatively prominent plantar spur. Vascular calcifications are noted in soft tissues. IMPRESSION: No acute bony abnormality identified. Plantar spur. Electronically signed by: Keron Norris MD 07/26/2019 1:59 PM [facility]
[2019-07-26] MEDS: SODIUM CHLORIDE 0.9% (FLUSH) 10 ML SYG IV SCH (21:25)
[2019-07-27] MEDS: HYDROcodone 5MG/APAP 325MG 1 EA TAB PO PRN ×4 (01:38→22:36)
[2019-07-27] MEDS: CLINDAMYCIN INJ (VIAL) 300 MG in SODIUM CHLORIDE 0.9% 50ML 50 ML IVPB SCH ×3 (01:40→17:57)
[2019-07-27] MEDS: CELECOXIB 100 MG CAP PO SCH (07:20)
[2019-07-27] MEDS ORDERED: SODIUM CHLORIDE 0.9% 50ML 50 ML ONE ×2 (07:41→17:20)
[2019-07-27] MEDS ORDERED: CLINDAMYCIN PHOSPHATE 150 MG/ML VIAL ONE ×2 (07:41→17:20)
--- NOTE | 2019-07-27 08:42 | PN ---
SUPERVISING PHYSICIAN: Esvin Haynes MD DATE: 07/26/19 SUBJECTIVE: The patient is still utilizing his Dilaudid pump and actually some sublingual [place]. He notes that his pain is still significantly elevated, but is much better controlled than prior to admission. He is not running any fevers. He feels like the swelling in the arm is decreased. He has better range of motion. He also is able to rest. Much of the pain has been better controlled with IV pain management. OBJECTIVE: VITAL SIGNS: Temperature 97.1. Pulse 65. Blood pressure 123/75. Respirations 20. Saturation 95% on room air. GENERAL: The patient was alert and resting comfortably, appeared to be in no acute distress. HEENT: Tympanic membranes clear bilaterally. Oropharynx pink, moist without lesions. NECK: Supple, non-tender with full range of motion. CHEST: Lung sounds clear to auscultation bilaterally without rhonchi, rales, or wheezes with small area of bruising noted approximately 5 x 5 cm in the center of the chest which is non-tender to palpation. CARDIOVASCULAR: Regular rate and rhythm without appreciable murmurs, rubs, or gallops. GASTROINTESTINAL: Abdomen is soft, nontender. Bowel sounds are positive. BACK: Without any significant findings. No CVA tenderness, no vertebral tenderness. EXTREMITIES: Left upper extremity had some edema with some mild erythema, warm to the touch. No obvious signs of infection. Incision site measured [id number] cm and appeared to be clean and dry with no drainage and was intact, healing well without any complications. The shoulder was tender to palpation throughout, more so anteriorly and posteriorly. There is noted tenderness to palpation along the elbow with full range of motion to the elbow. Strength and sensation were noted to be intact throughout. He does have some pain on passive range of motion/ NEUROLOGIC: Cranial nerves II-XII are grossly intact, no notable motor or sensory deficits. He was alert and oriented x 3. SKIN: Warm, pink and dry with exception of the left upper extremity which was mildly erythematous as noted. LABORATORY: No additional laboratory studies were ordered at this point. We are waiting for Dr. Ortega's plan to see the patient. ASSESSMENT: 1. Postoperative day #4 status post left total shoulder replacement with uncontrollable postoperative pain, on oral medications. 2. Hypertension, poorly controlled. 3. Chronic back pain. 4. Chronic bilateral foot pain. 5. Chronic osteoarthritis. 6. Chronic pain syndrome due to multiple surgical interventions likely contributing to poor control of #1. PLAN: We will continue with IV Dilaudid and supplement with p.o. [place]. He is still utilizing ice packs and keep his arm elevated to help decrease the swelling. Dr. Ortega is going to see the patient in consultation. I am hoping to be able to transition him to oral pain management within the next 24 to 48 hours. Until then, we continue to await further physical therapy evaluation and continue to monitor and treat as needed. #[id number] [facility]
--- NOTE | 2019-07-27 08:52 | CONS ---
CHIEF COMPLAINT: Left shoulder pain. HISTORY OF PRESENT ILLNESS: Luca is a 68-year-old male with a history of a total shoulder arthroplasty. He underwent shoulder arthroplasty and did well although he was having some pain issues. I received a call from [facility] that Luca had presented there with severe pain. He had also had swelling. There, he was afebrile and white count was only 10. I asked them to send Luca to us and we could admit him for pain control here. We discussed the findings on physical exam and his studies. He was admitted for pain control. On presentation, Luca was having pain, but he had no significant erythema. There was edema in the arm, however, it was consistent with the expected postoperative edema from his total shoulder. PAST MEDICAL HISTORY: 1. Osteoarthritis. PAST SURGICAL HISTORY: 1. Shoulder replacement. 2. Multiple foot surgeries. 3. Multiple back surgeries. 4. Multiple hand surgeries. MEDICATIONS: 1. Hydrocodone. 2. Flexeril. ALLERGIES: NO KNOWN DRUG ALLERGIES. SOCIAL HISTORY: The patient does not drink, smoke or use any illicit drugs. REVIEW OF SYSTEMS: Negative except as indicated in the History of Present Illness. PHYSICAL EXAMINATION: VITAL SIGNS: Temperature 99. Pulse 89. Blood pressure 190/100. Respirations 16. O2 saturation 90% on room air. Weight 74.2 kg. GENERAL: The patient was resting and not in any acute distress. MENTAL STATUS: The patient is awake, alert, and is able to give a good history and participate in the physical. The patient is oriented to person, place and time. SKIN: Normal tone and turgor. HEENT: Normocephalic, atraumatic. Pupils equal, round and reactive. Mucosal membranes are moist. NECK: Normal range of motion. No thyromegaly, no lymphadenopathy. CHEST: Normal respiratory excursion. CARDIAC: Regular rate and rhythm. No murmurs, rubs or gallops. MUSCULOSKELETAL: The left upper extremity has some edema with bruising around the surgical area. He has intact sensation. He has full winchman/crane operator strength. He has full range of motion of the elbow. He does have pain with range of motion of the shoulder, however, it is not above and beyond expected for status post shoulder arthroplasty. ASSESSMENT: 1. Pain status post total shoulder arthroplasty. PLAN: At this point, Mr. Leal is going to be admitted and I think his biggest issue right now lies with his pain control. He has been on chronic pain medicine for quite some time and we may need to adjust his pain regimen. We are going to start him a Dilaudid RIB CUTTER for initial pain management and then we will transition over and possibly begin him on Vicoprofen. We will see how he does beyond that. We will begin range of motion and edema control while he is in the hospital with us. I appreciate our hospitalist's input and assistance with Mr. Leal. [facility][id number] [facility]
--- NOTE | 2019-07-27 09:03 | PN ---
DATE: 07/26/19 SUBJECTIVE: Mr. Leal is doing really well today and he has had significant improvement in his pain. OBJECTIVE: Afebrile. Vital signs stable. Wound is clean. There are no signs or symptoms of infection. ASSESSMENT: 1. Status post total shoulder arthroplasty. 2. Chronic pain syndrome. PLAN: At this point, we are going to continue with his current pain regimen. It seems as though he is doing well with that. We will get him switched over to a p.o. medicine starting tomorrow. #[id number] [facility]
--- NOTE | 2019-07-27 09:04 | PN ---
DATE: 07/27/19 SUBJECTIVE: Mr. Leal is doing well and has continued to have great pain control. OBJECTIVE: Afebrile. Vital signs stable. Wound is clean. There are no signs or symptoms of infection. Edema has continued to improve with elevation and range of motion. ASSESSMENT: 1. Status post total shoulder arthroplasty. 2. Chronic pain syndrome. PLAN: Today, we are going to have him transition to just p.o. medicine. We will see how he does on that and discharge when we have him on a good oral regimen. [facility][id number] [facility]
[2019-07-27] MEDS: BIFIDOBACTERIUM INFANTIS 4 MG CAP PO SCH (10:08)
[2019-07-27] MEDS: SODIUM CHLORIDE 0.9% (FLUSH) 10 ML SYG IV SCH ×2 (10:23→21:15)
[2019-07-27] MEDS ORDERED: SODIUM CHLORIDE 0.9% 250ML 250 ML ONE ×2 (10:48→22:17)
[2019-07-27] MEDS ORDERED: VANCOMYCIN HCL INJ 1,000 MG VIAL IVPB ONE ×2 (10:48→22:18)
[2019-07-27] MEDS: VANCOMYCIN HCL INJ 1,000 MG in SODIUM CHLORIDE 0.9% 250ML 250 ML IVPB SCH ×2 (10:52→22:21)
--- NOTE | 2019-07-27 15:50 | PN ---
SUPERVISING PHYSICIAN: Apollo Peters MD DATE: 07/27/19 SUBJECTIVE: The patient is seems to be doing well. We will continue IV pain management as well as transition to oral [place]. He does have good range of motion of his arm. He has not had any chest pain, nausea or vomiting or complaints. He has not been febrile. OBJECTIVE: VITAL SIGNS: Temperature 98.3. Pulse 62. Blood pressure 125/79. Respirations 16. Saturation 94% on room air. GENERAL: The patient was alert and resting comfortably, appeared to be in no acute distress. HEENT: Tympanic membranes clear bilaterally. Oropharynx pink, moist without lesions. NECK: Supple, non-tender with full range of motion. CHEST: Lung sounds clear to auscultation bilaterally without rhonchi, rales, or wheezes with small area of bruising noted approximately 5 x 5 cm in the center of the chest which is non-tender to palpation. CARDIOVASCULAR: Regular rate and rhythm without appreciable murmurs, rubs, or gallops. GASTROINTESTINAL: Abdomen is soft, nontender. Bowel sounds are positive. BACK: Without any significant findings. No CVA tenderness, no vertebral tenderness. EXTREMITIES: Left upper extremity had some edema with some mild erythema, warm to the touch. No obvious signs of infection. Incision site measured [id number] cm and appeared to be clean and dry with no drainage and was intact, healing well without any complications. The shoulder was tender to palpation throughout, more so anteriorly and posteriorly. There is noted tenderness to palpation along the elbow with full range of motion to the elbow. Strength and sensation were noted to be intact throughout. He does have some pain on passive range of motion NEUROLOGIC: Cranial nerves II-XII are grossly intact, no notable motor or sensory deficits. He was alert and oriented x 3. SKIN: Warm, pink and dry with exception of the left upper extremity which was mildly erythematous as noted. LABORATORY: No additional laboratory or radiographic studies today. ASSESSMENT: 1. Postoperative day #5 status post left total shoulder replacement with uncontrollable postoperative pain, on oral medications. 2. Hypertension, poorly controlled. 3. Chronic back pain. 4. Chronic bilateral foot pain. 5. Chronic osteoarthritis. 6. Chronic pain syndrome due to multiple surgical interventions likely contributing to poor control of #1. PLAN: We will start transitioning to p.o. medication in the form of [place] and continue with muscle relaxant with Flexeril as needed. He was again encouraged to ambulate and work with physical therapy in regards to his shoulder stiffness. He is remaining on antibiotics, at this point just empirically at Dr. Ortega's request. There are no obvious signs of infection and he seems to be doing very well. I anticipate he will discharge tomorrow once he an transition to oral pain control. Until then, we will continue to monitor and treat as needed. [id number] [facility]
[2019-07-27] MEDS ORDERED: ENOXAPARIN SODIUM 40 MG/0.4 ML SYG SUBCU SCH (21:00)
[2019-07-28] MEDS ORDERED: CLINDAMYCIN PHOSPHATE 150 MG/ML VIAL ONE ×2 (01:52→08:50)
[2019-07-28] MEDS ORDERED: SODIUM CHLORIDE 0.9% 50ML 50 ML ONE ×2 (01:52→08:51)
[2019-07-28] MEDS: CLINDAMYCIN INJ (VIAL) 300 MG in SODIUM CHLORIDE 0.9% 50ML 50 ML IVPB SCH ×2 (01:53→09:15)
[2019-07-28] MEDS: HYDROcodone 5MG/APAP 325MG 1 EA TAB PO PRN (05:41)
[2019-07-28 05:48] VITALS: O2SAT 96
[2019-07-28 08:18] VITALS: BP 135/85; TEMP 98.6
[2019-07-28] MEDS: CELECOXIB 100 MG CAP PO SCH (09:14)
[2019-07-28] MEDS: SODIUM CHLORIDE 0.9% (FLUSH) 10 ML SYG IV SCH (09:15)
[2019-07-28] MEDS: BIFIDOBACTERIUM INFANTIS 4 MG CAP PO SCH (09:15)
[2019-07-28] MEDS ORDERED: SODIUM CHLORIDE 0.9% 250ML 250 ML ONE (09:59)
[2019-07-28] MEDS ORDERED: VANCOMYCIN HCL INJ 1,000 MG VIAL IVPB ONE (10:00)
[2019-07-28] MEDS: VANCOMYCIN HCL INJ 1,000 MG in SODIUM CHLORIDE 0.9% 250ML 250 ML IVPB SCH (10:03)
--- NOTE | 2019-07-28 13:41 | DS ---
SUPERVISING PHYSICIAN: Apollo Peters MD DISCHARGE DIAGNOSIS: 1. Postoperative day #7 status post left total shoulder replacement with uncontrollable postoperative pain, on oral medications. 2. Hypertension, poorly controlled. 3. Chronic back pain. 4. Chronic bilateral foot pain. 5. Chronic osteoarthritis. 6. Chronic pain syndrome due to multiple surgical interventions likely contributing to poor control of #1. HISTORY OF PRESENT ILLNESS: This is a 68-year-old male patient who was postoperative day #3 status post total left shoulder replacement. He was transferred from [place] ED by ground EMS with a complaint of severe left shoulder pain. He said the pain had been worsening with some mild redness and swelling since discharge. He has not had any relief with his oral medications. In the Emergency Department, he had a white count of 10,000 without a left shift. A CT of the left shoulder was completed and showed just a few areas of small fluid collections which were thought to be normal postoperative findings as well as a small hematoma but infection was not able to be ruled out on CT. The patient also had a left upper extremity Doppler venous study which revealed no evidence of DVT. He was given antibiotics at [facility] that included vancomycin and Zosyn and was transferred here for evaluation at Dr. Ortega's request. He was requiring a significantly large pain medication dosage that included morphine which was up to 8 mg as well as fentanyl and on arrival was still reporting his pain was controlled but throbbing and 7/10 throughout the left shoulder. The pain was worse anteriorly and posteriorly and worsened with range of motion. There was some reported redness and warmth as well as swelling that extended to the upper arm and forearm of the left upper extremity, but this was not seen on admission to our Emergency Department today. He denied any weakness or other neurovascular compromise to the left extremity. Dr. Ortega was consulted by the physician at [place] and after consultation, it was requested the patient be transferred to the Emergency Room at [facility]. Dr. Ortega contacted the hospitalist precision lens polisher and requested the patient be admitted after evaluation in the Emergency Department. On presentation to the Emergency Room at [facility], vital signs showed temperature of 99.3. He was actually hypertensive with a blood pressure of 190/102, oxygen saturation 100% on room air. No additional laboratory studies were done prior to admission to the Emergency Room. He had already been started on antibiotics. The patient was found to be stable with no obvious overt signs of infection in his shoulder and was going to be admitted for more aggressive pain management and close evaluation and consultation with Dr. Ortega. The patient was admitted to the hospital in stable condition. HOSPITAL COURSE: The hospitalist discussed the case with Dr. Ortega and they put the patient in the hospital for better pain management as well as evaluation. He was started on a Dilaudid pain pump at Dr. Ortega's request as well as his postoperative care and comfort measures. Dr. Ortega also requested that we start him on some empiric coverage with antibiotics to include clindamycin and vancomycin. Although at this point there is no obvious infection, but given that he is recently postoperative from a total shoulder arthroplasty and the patient already been discharged home, antibiotic coverage was started. He was closely monitored. Labs were ordered and physical therapy was consulted as well as a consult with Dr. Ortega. The goal was to further rule out any possibility of infection. At the point he was admitted, most likely it was due to his chronic pain syndrome. He continued to use the Dilaudid pump and even though he complained of pain, 7/10 most of the times, he did say his pain has much better control. He was then supplemented with oral [place] as well as placing ice packs on his shoulder and keeping his arm elevated. He was transitioned off the Dilaudid pain pump over the next day so. He continued with physical therapy. Dr. Ortega felt like it was mostly pain issues. Again, he was afebrile and had a white count of only 10. He was started on range of motion exercises with physical therapy and weaned off of his pain pump. He has good range of motion and has no chest pain, nausea or vomiting. During his stay here, he also utilized Flexeril as a muscle relaxer. Today, he will be discharged home in stable condition with oral pain medication. LABORATORY: There is no laboratory to report. RADIOLOGY: There is no radiology to report. DISCHARGE PLAN: The patient will be discharged home in stable condition. He is to have [facility] for [facility]. He is to resume his usual diet and increase his activity as per physical therapy. He is to obtain a followup appointment with Florian Coronado in one to two weeks. He has an appointment with Dr. Ortega on 08/06/19 at 10 AM. In addition to his routine medications, he is also to be discharged with Celebrex as well as clindamycin for 7 days. He is to return to the hospital or followup with Dr. Ortega for any problems or complications. DISCHARGE MEDICATIONS: 1. Multivitamins. 2. A natural product for prostate health. 3. Cyclobenzaprine. 4. Celebrex. 5. Clindamycin. #[id number] [facility]
== END 2019-07-28 10:46 | disposition home health service (06) ==
LOC: ER 14:46 → INTOOBSV 16:41 → OBSVTOIN 16:41 → MS 16:41
PROVIDERS: ADMIT Nurse Practitioner Family; ATTEND Nurse Practitioner Acute Care
DX: G89.18 Other acute postprocedural pain (principal); M25.512 Pain in left shoulder; I10 Essential (primary) hypertension; G89.4 Chronic pain syndrome; M19.90 Unspecified osteoarthritis, unspecified site; M79.671 Pain in right foot; M79.672 Pain in left foot; R50.9 Fever, unspecified; M77.31 Calcaneal spur, right foot; Z96.612 Presence of left artificial shoulder joint; Z86.19 Personal history of other infectious and parasitic diseases; Z79.899 Other long term (current) drug therapy; Z87.891 Personal history of nicotine dependence
CPT/HCPCS: 96366 ×4; 96367; 96365; 96375; 96376 ×2; 96372; J3490 ×9; J1170; J7030; A4216 ×9; J7050 ×6; J3370 ×6; J1650; 36415; 80202 ×2; 73630 ×2; 94760; 94762; 97116 ×2; 97110 ×2; 97162; 99285; G0378

== ENCOUNTER → 2019-09-17 | Outpatient (CLI) | payer MEDICARE, MEDICAID ==
--- NOTE | 2019-09-17 08:25 | RAD ---
EXAM DESCRIPTION: Shoulder,Left 2 or More Views CLINICAL HISTORY: 69 years Male, SHOULDER PAIN COMPARISON: July 21, 2019 Findings: Four view(s)/radiograph(s) Redemonstrated reverse left shoulder arthroplasty. No hardware complication. No acute fracture or dislocation. No focal soft tissue swelling. The chest is clear. Similar acromioclavicular osteoarthritis. IMPRESSION: Reverse left shoulder arthroplasty. No hardware complication. Electronically signed by: John Brown MD 09/17/2019 8:23 AM CDT
== END ==
LOC: RAD 08:06
PROVIDERS: ATTEND Orthopaedic Surgery
DX: M25.512 Pain in left shoulder (principal); Z96.612 Presence of left artificial shoulder joint

== ENCOUNTER → 2019-11-06 | Outpatient (CLI) | payer MEDICARE, MEDICAID ==
--- NOTE | 2019-11-06 10:29 | CT ---
EXAM DESCRIPTION: Lower Extremity CLINICAL HISTORY: 69 years Male, RIGHT FOOT PAIN COMPARISON: Radiographs the right foot dated 07/26/2019. TECHNIQUE: CT of the right foot was performed without intravenous contrast administration. Sagittal and coronal reconstructions were reviewed. This exam was performed according to our departmental dose-optimization program, which includes automated exposure control, adjustment of the mA and/or kV according to patient size and/or use of iterative reconstruction technique. FINDINGS: Visualized bones appear well mineralized. No acute fracture or dislocation. Arthrodeses of the first metatarsophalangeal joint is noted with a large osteophyte along the plantar aspect of the head of the first metatarsal. Mild degenerative changes are identified in the second through fifth metatarsophalangeal joints. Moderate midfoot arthropathy. Moderate degenerative changes are identified in the interphalangeal joint of the great toe and subtalar joint. Large plantar calcaneal spur and small posterior calcaneal spur. No acute fracture or dislocation. CT is limited for evaluation of soft tissue structures, however grossly no evidence of tenosynovitis. Atheromatous carotid calcifications of the visualized vasculature. IMPRESSION: 1. Arthrodesis of the first metatarsophalangeal joint. 2. Degenerative changes are identified throughout the right foot as described above. 3. Large plantar and small posterior calcaneal spurs. Electronically signed by: Randee Silverman MD 11/06/2019 10:27 AM CDT
== END ==
LOC: CT 10:00
PROVIDERS: ATTEND Orthopaedic Surgery
DX: M19.071 Primary osteoarthritis, right ankle and foot (principal); M77.31 Calcaneal spur, right foot; Z98.1 Arthrodesis status

== ENCOUNTER → 2020-02-01 | Outpatient (CLI) | payer MEDICARE, MEDICAID ==
--- NOTE | 2020-02-01 11:32 | RAD ---
EXAM DESCRIPTION: Chest,2 Views CLINICAL HISTORY: PRE OP- TOE SURGERY COMPARISON: Previous study June 22, 2019 TECHNIQUE: PA/lateral FINDINGS: Reverse left shoulder arthroplasty. Heart size is normal with normal pulmonary vascularity. No pleural effusion or pneumothorax. Lungs are clear on frontal view with no consolidating infiltrate. Lateral view shows intact sternum and T-spine. On the lateral view, nodular density is seen in the posterior costophrenic angle region, side indeterminate. This measures 1.5 cm and differential considerations would include a nodule, pleural-based nodule or bony abnormality. This was not definite seen on the previous study in May 2019 and could be a new development. Correlate with CT findings. IMPRESSION: Question lower lung nodule seen on lateral view only. See above. Electronically signed by: Ten Ford MD 02/01/2020 11:30 AM CDT
== END ==
LOC: LAB.O 07:38
PROVIDERS: ATTEND Orthopaedic Surgery
DX: Z01.818 Encounter for other preprocedural examination (principal); R91.8 Other nonspecific abnormal finding of lung field

== ENCOUNTER 2020-03-01 05:17 | Day surgery (SDC) | payer MEDICARE, MEDICAID ==
[2020-03-01] MEDS ORDERED: ceFAZolin SODIUM 1 GM VIAL ONE ×2 (07:00→11:35)
[2020-03-01] MEDS ORDERED: SODIUM CHL 0.9% 100ML MINI-BAG 100 ML IVPB ONE (07:00)
[2020-03-01] MEDS ORDERED: LACTATED RINGERS 1,000 ML ONE (07:00)
[2020-03-01] MEDS ORDERED: SODIUM CHLORIDE 0.9% 50 ML VIAL INJ ONE (10:00)
[2020-03-01] MEDS ORDERED: PROPOFOL 200 MG/20 ML VIAL IV ONE (10:00)
[2020-03-01] MEDS ORDERED: DEXAMETHASONE INJ 10 MG/ML VIAL IV ONE (10:00)
[2020-03-01] MEDS ORDERED: LIDOCAINE 1% 10 ML VIAL INJ ONE (10:00)
[2020-03-01] MEDS ORDERED: MAGNESIUM SULFATE INJ 1 GM/2 ML VIAL IVPB ONE (10:00)
[2020-03-01] MEDS ORDERED: VANCOMYCIN HCL INJ 1,000 MG VIAL IVPB ONE ×2 (11:35→12:52)
[2020-03-01] MEDS ORDERED: BUPIVACAINE 0.5% 30 ML VIAL INJ ONE ×2 (11:36→12:52)
[2020-03-01] MEDS ORDERED: MIDAZOLAM INJ 2 MG/2 ML VIAL ONE (12:42)
[2020-03-01] MEDS ORDERED: KETAMINE HCL 100 MG/ML VIAL ONE (12:42)
[2020-03-01] MEDS ORDERED: HYDROmorphone HCL INJ 2 MG/ML VIAL ONE (12:43)
[2020-03-01] MEDS: HYDROmorphone HCL INJ 2 MG/ML VIAL ONE ×6 (12:45→14:55)
[2020-03-01] MEDS ORDERED: ceFAZolin SODIUM 1 GM VIAL IRRIG ONE (12:52)
[2020-03-01] MEDS ORDERED: HYDROcodone 5MG/APAP 325MG 1 EA TAB ONE (15:22)
[2020-03-01 16:26] VITALS: BP 119/85; TEMP 97; O2SAT 95
--- NOTE | 2020-03-02 12:25 | RAD ---
FL LESS THAN 1 HOUR HISTORY: 69 years Male REMOVAL OF OSTEOPHYTE RT GREAT TOE COMPARISON: None. 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 See procedure notes for further details. Fluoroscopy time: 9.1 seconds. Fluoroscopic images: 1. Electronically signed by: Mat Elias MD 03/02/2020 12:23 PM CDT
--- NOTE | 2020-03-07 08:55 | OP ---
DATE OF PROCEDURE: 03/01/20 PREOPERATIVE DIAGNOSIS: 1. Osteophyte on the plantar aspect of the foot. POSTOPERATIVE DIAGNOSIS: 1. Osteophyte on the plantar aspect of the foot. PROCEDURE: 1. Excision of osteophyte. SURGEON: Juan Ortega MD. PATTERN MARKER: Chaparro Cuellar CST, SA-C. ANESTHESIA: General anesthesia. COMPLICATIONS: None. FINDINGS: Osteophyte underlying the metatarsal head of the first metatarsal. INDICATION: Luca has had surgical intervention on his foot prior to this. Unfortunately, he developed an osteophyte on the underside of his foot. This became very symptomatic for him and after discussing the risks, benefits and alternatives to operative therapy, informed consent was obtained for excision of the osteophyte. PROCEDURE: The patient was brought to the Operating Room and placed in supine position. General anesthesia was induced. The patient's leg was sterilely prepped and draped. Following prepping and draping, an incision was made between the first and second metatarsal heads on the plantar aspect. Dissection was carried down to the osteophyte, which was palpated. A sufficient amount of the osteophyte was resected and the wound was very thoroughly irrigated. Once that occurred, the wound was closed with a combination of interrupted and subcutaneous stitches as well as Nylon. Sterile dressing was placed. The patient was awoken from anesthesia and taken to Recovery. POSTOPERATIVE PLAN: He will be in a postoperative shoe and will followup with us in two days. #[id number] [facility]
== END 2020-03-01 16:25 | disposition home or self-care (01) ==
LOC: AMB 05:17
PROVIDERS: ATTEND Orthopaedic Surgery
DX: M25.774 Osteophyte, right foot (principal); Z79.899 Other long term (current) drug therapy; Z79.1 Long term (current) use of non-steroidal anti-inflammatories (NSAID); Z79.891 Long term (current) use of opiate analgesic; Z79.52 Long term (current) use of systemic steroids
CPT/HCPCS: 01480; 28104; 76000; 80307; A4216; J0690; J1100; J1170; J2250; J3370; J3475; J3490; J7050; J7120

== ENCOUNTER → 2020-03-31 | Outpatient (CLI) | payer MEDICARE, MEDICAID ==
--- NOTE | 2020-04-01 07:57 | RAD ---
EXAM DESCRIPTION: Foot,Left 3 Views (accession [id number]), Shoulder,Right 2 or More Views (accession [id number]) CLINICAL HISTORY: 69 years, Male, PAIN IN LEFT FOOT COMPARISON: None TECHNIQUE: AP, lateral, and oblique views of the left foot Right shoulder three x-ray views FINDINGS: Left foot There is no other bone, joint, or soft tissue abnormality observed. Fused first metatarsal phalangeal joint with orthopedic screws in place. Degenerative narrowing of the joints of the toes. No midfoot malalignment. Lateral view shows large plantar calcaneal spur. Minimal dorsal spurring. Mild degenerative spurring at the dorsal midfoot. Talus and calcaneus appear intact. There is no radiopaque foreign body. Right shoulder High riding humeral head is seen with complete loss of acromiohumeral distance consistent with chronic rotator cuff tear. There is irregularity of the superior humeral head surface and erosion of the undersurface of the acromion (acetabular isolation). Degenerative changes at the right AC joint with inferior spurring. Glenohumeral alignment is maintained on the transscapular Y view. No fracture or dislocation. Transaxillary view shows normal glenohumeral alignment. IMPRESSION: Large plantar calcaneal spur of the left foot. Degenerative arthrosis of the right shoulder with chronic rotator cuff tear. Electronically signed by: Ten Ford MD 04/01/2020 7:56 AM CDT
--- NOTE | 2020-04-01 07:58 | RAD ---
EXAM DESCRIPTION: Foot,Left 3 Views (accession [id number]), Shoulder,Right 2 or More Views (accession [id number]) CLINICAL HISTORY: 69 years, Male, PAIN IN LEFT FOOT COMPARISON: None TECHNIQUE: AP, lateral, and oblique views of the left foot Right shoulder three x-ray views FINDINGS: Left foot There is no other bone, joint, or soft tissue abnormality observed. Fused first metatarsal phalangeal joint with orthopedic screws in place. Degenerative narrowing of the joints of the toes. No midfoot malalignment. Lateral view shows large plantar calcaneal spur. Minimal dorsal spurring. Mild degenerative spurring at the dorsal midfoot. Talus and calcaneus appear intact. There is no radiopaque foreign body. Right shoulder High riding humeral head is seen with complete loss of acromiohumeral distance consistent with chronic rotator cuff tear. There is irregularity of the superior humeral head surface and erosion of the undersurface of the acromion (acetabular isolation). Degenerative changes at the right AC joint with inferior spurring. Glenohumeral alignment is maintained on the transscapular Y view. No fracture or dislocation. Transaxillary view shows normal glenohumeral alignment. IMPRESSION: Large plantar calcaneal spur of the left foot. Degenerative arthrosis of the right shoulder with chronic rotator cuff tear. Electronically signed by: Ten Ford MD 04/01/2020 7:56 AM CDT
== END ==
LOC: RAD 09:47
PROVIDERS: ATTEND Orthopaedic Surgery
DX: M19.011 Primary osteoarthritis, right shoulder (principal); M75.101 Unspecified rotator cuff tear or rupture of right shoulder, not specified as traumatic; M77.32 Calcaneal spur, left foot; M79.672 Pain in left foot